=== PATIENT | male | born 1965 | race Caucasian/White ===

== ENCOUNTER 2020-08-24 10:53 | Emergency (ER) | payer SELFPAY ==
[2020-08-24 11:05] VITALS: BMI 28.1
--- NOTE | 2020-08-24 11:07 | W.ED.EAR ---
HPI - Ear Problem General: Chief complaint: Ear Stated complaint: Ear Infection Time Seen by Provider: 08/24/20 10:57 History of Present Illness: HPI Narrative: 55-year-old male patient presents to the emergency department with complaints of left ear pain x1 week. He reports using gvku-zqr-vsorfrc triple antibiotic ointment, ear cleansing medication and warm moist heat without improvement, he reports ear continues to swell. He reports difficulty with hearing and pain to the ear canal. Associated symptoms: Denies fever(s) or headache(s) Review of Systems General: Reports: 10 or more systems reviewed and unremarkable except in HPI and below Const: Denies: fever(s), chills or diaphoresis Eyes: Denies: blurry vision or eye redness ENMT: Denies: throat pain, dental pain, disequilibrium, nasal congestion, nasal obstruction or post nasal drip Card: Denies: chest pain, palpitations or irregular heart rhythm Resp: Denies: dyspnea, productive cough, non-productive cough or wheezing GI: Denies: abdominal pain, nausea or vomiting : Denies: dysuria Musc: Denies: back pain Skin/Breast: Denies: rash or pruritus Neuro: Denies: headache(s), weakness in extremities or behavioral changes Bhupinder/Lymph: Denies: easy bruising Physical Exam Const: COMMON NORMALS: no acute distress, patient oriented x3, healthy appearing and alert GENERAL APPEARANCE: cooperative, comfortable and well hydrated HENMT: COMMON NORMALS: normocephalic, EAC's normal (Right), Normal external nose present, Normal nasal mucous membranes and turbinates present and moist oral mucous membranes HEAD & SCALP: normocephalic FACE & SINUS: normal facial exam, sinuses nontender and face symmetric; no sinus tenderness NOSE: Normal external nose present, Normal nares present and Normal nasal mucous membranes and turbinates present EXTERNAL EAR: Yes external ear abnormal Abnormal external ear present: auricular tenderness (Left) EXTERNAL AUDITORY CANAL: EAC's normal (Right) and Abnormal EAC present (With edema and tenderness) EAC laterality: left TYMPANIC MEMBRANE: TM normal on the right and TM abnormal TM laterality: left Details: dull, erythematous and loss of landmarks MOUTH: Normal oral and palatal mucosa present THROAT: posterior oropharynx normal Eye: COMMON NORMALS: Equal, round and reactive pupils present and EOMs intact bilaterally GENERAL EYE: appearance normal, both eyes and all related structures PUPIL: Yes Equal, round and reactive pupils present Neck/C-Spine: COMMON NORMALS: full ROM and no lymphadenopathy GENERAL: Yes normal visual inspection and Yes trachea midline CERVICAL SPINE: Yes cervical ROM normal Lymph: LYMPHATIC: no lymphadenopathy noted Chest: COMMONS NORMALS: normal inspection of the chest Resp: COMMON NORMALS: normal respiratory effort and clear to auscultation bilaterally AUSCULTATION: clear to auscultation bilaterally Cardio: COMMON NORMALS: regular rhythm, S1 normal heart sound present and S2 normal heart sound present RHYTHM: regular rhythm HEART SOUNDS: S1 normal heart sound present and S2 normal heart sound present GI: COMMON NORMALS: Soft to palpation and non-tender INSPECTION: Yes normal to inspection PALPATION: Yes Soft to palpation : COMMON NORMALS: Yes no CVA tenderness BLADDER/KIDNEY EXAM: Yes no CVA tenderness Back/Pelvis: COMMON NORMALS: no CVA tenderness and thoracic and lumbar spine normal to inspection Extremity: COMMON NORMALS: normal to inspection and capillary refill normal Neuro: COMMON NORMALS: patient oriented x3 and no focal motor deficits SENSORIUM/ORIENTATION: Yes alert Psych: COMMON NORMALS: mental status grossly normal, Normal thought process present and cooperative ACTIVITY/MOTOR BEHAVIOR: Yes appropriate eye contact THOUGHT PROCESS: Normal thought process present Skin: COMMON NORMALS: no rashes or lesions noted and turgor normal GENERAL SKIN EXAM: no rashes or lesions noted and turgor normal Course ED course: 55-year-old male patient presents to the emergency department with complaints of left ear pain and swelling. Use of multiple sxwd-eal-hraqyqx agents to help improve pain, has noted an increased swelling, ear canal was not closed upon exam, tympanic membrane on the left was visualized with erythema. Patient was placed on Augmentin due to possibility of otitis media with otitis externa. He declined further medication other than oral antibiotic, has requested to continue use egol-lfh-pykftou ibuprofen, advised to continue with warm moist heat and cool compresses as needed for symptom relief. Discharge Plan Discharge Patient Disposition: Home Clinical Impression: Otitis externa Qualifiers: Otitis externa type: unspecified type Chronicity: acute Laterality: left Qualified Code(s): H60.502 - Unspecified acute noninfective otitis externa, left ear Condition: Stable Prescriptions: New Augmentin 875-125 mg tablet 1 tab PO Q12H Qty: 14 RF: 0 Discharge Orders: Discharge Order (Routine); Ordered 08/24/20 Ordered By: Tammy Blackwood Discharge Diet: Usual diet Discharge Activity: Resume usual activity Patient Instructions: Otitis Externa - Adult, Otitis Media (ED) Activity Restrictions/Additional Instructions: Take Augmentin until gone, even if feeling better, take medication with food as it can cause stomach upset Follow-up with your primary care provider if your pain does not improve in the next 72 hours Continue with warm moist heat and cool compresses as needed for pain Antibiotic therapy will take 24 to 48 hours to improve symptoms, avoid eardrops or Q-tips to the left ear until improved. Continue use of ibuprofen, pfri-ros-jukxnrn, never exceed 4 tablets 3 times daily in a 24-hour period. Coding Level of Care Code ED Data Examination Clerk for Nacho Godinez
[2020-08-24 11:10] VITALS: BP 128/77; PULSE 73; RESP 16; TEMP 36.9; O2SAT 96
[2020-08-24 11:28] VITALS: BP 128/77; PULSE 73; RESP 16; TEMP 36.9; O2SAT 96
== END 2020-08-24 11:21 | disposition home or self-care (01) ==
PROVIDERS: Emergency Provider Nurse Practitioner Family
DX: H60.502 Unspecified acute noninfective otitis externa, left ear (principal)
CPT/HCPCS: 12345; 99281; 99282

== ENCOUNTER → 2021-12-07 09:42 | Outpatient (BNVA) | payer OTHER, SELFPAY | PROVIDERS: Visit Provider Nurse Practitioner Family | DX: Z20.822 Contact with and (suspected) exposure to COVID-19 (principal) | CPT/HCPCS: 87635 ==

== ENCOUNTER 2024-02-27 19:52 | Emergency (ER) | payer SELFPAY ==
[2024-02-27 19:56] VITALS: BP 158/88; PULSE 84; RESP 16; TEMP 36.7; O2SAT 97
--- NOTE | 2024-02-27 20:06 | XRR_ITS ---
PROCEDURE INFORMATION: Exam: XR Chest Exam date and time: 02/27/2024 9:41 PM Age: 58 years old Clinical indication: Shortness of breath; Patient HX: C/O SOB. TECHNIQUE: Imaging protocol: Radiologic exam of the chest. Views: 1 view. COMPARISON: No relevant prior studies available. FINDINGS: Lungs: Unremarkable. No consolidation. Pleural spaces: Unremarkable. No pleural effusion. No pneumothorax. Heart/Mediastinum: Unremarkable. No cardiomegaly. Bones/joints: Unremarkable. XR/XR chest 1V [id number] IMPRESSION: No acute findings.
[2024-02-27 20:52] LABS: Basophils # 0.1 10^3/uL (0.0-0.1); Basophils % 1.1 %; Eosinophils # 0.3 10^3/uL (0.0-0.8); Eosinophils % 4.8 %; Hematocrit 46.3 % (37-53); Lymphocytes # 1.3 10^3/uL (0.8-4.8); Lymphocytes % 21.4 %; Mean Corpuscular HGB Conc 32.8 g/dL (30-55); Mean Corpuscular Hemoglobin 30.9 pg (27-33); Mean Corpuscular Volume 94.1 fl (82-101); Mean Platelet Volume 8.3 fL (7.4-10.4); Monocytes # 0.7 10^3/uL (0.2-0.9); Monocytes % 10.8 %; Neutrophils # 3.68 10^3/uL (1.8-7.7); Neutrophils % 59.3 %; Nucleated Red Blood Cells % 0 %; Platelet Count 271 10^3/cmm (157-399); Red Blood Count 4.92 10^6/uL (3.85-5.65); Red Cell Distribution Width 12.4 % (12.1-15.1); White Blood Count 6.21 10^3/uL (3.29-11.43)
[2024-02-27 21:16] LABS: Alanine Aminotransferase 30 U/L (0-41); Albumin Level 4.2 g/dL (3.5-5.2); Alkaline Phosphatase 101 U/L (40-130); Aspartate Amino Transferase 22 U/L (0-40); Blood Urea Nitrogen 21 mg/dL (6-20); Calcium 9.5 mg/dL (8.5-10.5); Chloride 101 mmol/L (98-107); Creatinine Clr Calc Pharmacy 104.2094; Globulin 2.8 g/dL (1.3-4.6); Glomerular Filtration Rate 99.6 mL/min (90-130); Glucose 93 mg/dL (65-115); Osmolality Calculated 287 mOsm/kg (285-295); Potassium 4.4 mmol/L (3.5-5.1); Sodium 137 mmol/L (136-145); Total Bilirubin 0.3 mg/dL (0.15-1.2)
[2024-02-27 21:18] LABS: Troponin(5th) Baseline 7 ng/L (0-15)
[2024-02-27 21:28] LABS: Influenza A by IFA negative (Negative); Influenza B by IFA negative (Negative)
[2024-02-27 21:29] LABS: SARS Covid-2 Antigen negative (Negative)
[2024-02-27 21:34] VITALS: BP 150/90; PULSE 76; RESP 13; O2SAT 96
[2024-02-27 21:36] LABS: Anion Gap 14.4 (5-19); Carbon Dioxide 26 mmol/L (22-29)
[2024-02-27 21:46] LABS: Bilirubin Urine Neg (Negative); Blood Urine Neg (Negative); Glucose Urine UA Norm (Normal); Ketones Urine Negative (Negative); Leukocyte Esterase Urine Negative (Negative); Nitrate Urine Negative (Negative); Protein Urine Neg (Negative); Urine Appearance Clear (CLEAR); Urine Color Yellow (Yellow); Urobilinogen Urine Neg (Negative); pH Urine 7 (5-7)
[2024-02-27 21:47] LABS: Amorphous Sediment Urine 2+ /hpf; Bacteria Urine 2+ /hpf; RBC Urine 0-4 /hpf (0-2); Squamous Epithelial Cell Urine 0-4 /hpf (0-5); WBC Urine 0-4 /hpf (0-5)
[2024-02-27 22:05] VITALS: BP 133/73; PULSE 74; RESP 19; O2SAT 93
--- NOTE | 2024-02-27 22:07 | ECG_ITS ---
[facility] Test Date: 2024-02-27 Pat Name: Jimmie Pavon Department: Room: Gender: Male [employer]: : 1965 Requested By: Maria Elena Aevry Order Number: [id number] Raúl MD: Lev Lowry M.D. Measurements Intervals [place] Rate: 73 P: 34 MT: 132 QRS: 57 QRSD: 80 T: 45 QT: 371 QTc: 410 Interpretive Statements SINUS RHYTHM No previous ECG available for comparison Electronically Signed On 02-27-2024 23:13:33 CDT by Lev Lowry M.D. [id number]
[2024-02-27] MEDS: meclizine 25 mg tablet 50 MG PO (22:09)
--- NOTE | 2024-02-27 22:19 | W.ED.DIZZY ---
HPI - Dizziness General: Chief Complaint: Dizziness Stated Complaint: BP Time Seen by Provider: 02/27/24 21:24 History of Present Illness: HPI Narrative: Patient presents to the ER with complaints of off-and-on dizziness for the last month. Patient also complaining of intermittent epigastric pain with an unknown cause. Patient states that he does have a chronic cough that is worse in the morning. Patient works in the [employer] for a long time and has inhaled a lot of chemicals. Review of Systems General: Reports: 10 or more systems reviewed and unremarkable except in HPI and below PFSH ED PFSH: Social History Smoking and tobacco/nicotine status: current every day tobacco/nicotine user smokeless tobacco Smokeless tobacco user: chewing tobacco Physical Exam HENMT: COMMON NORMALS: normocephalic, atraumatic, hearing grossly normal bilaterally, external ears normal, Normal external nose present, moist oral mucous membranes and oropharynx normal HEAD & SCALP: normocephalic and atraumatic NOSE: Normal external nose present EXTERNAL EAR: Yes external ears normal Eye: COMMON NORMALS: Equal, round and reactive pupils present, EOMs intact bilaterally, conjunctivae normal and no scleral icterus CONJUNCTIVA: Yes conjunctivae normal PUPIL: Yes Equal, round and reactive pupils present Neck/C-Spine: COMMON NORMALS: full ROM, no lymphadenopathy, supple, no meningeal signs, no JVD and Thyroid normal THYROID: Thyroid normal Chest: COMMONS NORMALS: normal inspection of the chest and normal palpation of entire chest wall Resp: COMMON NORMALS: normal respiratory effort, No retractions, No use of accessory muscles and clear to auscultation bilaterally AUSCULTATION: clear to auscultation bilaterally Cardio: COMMON NORMALS: no JVD, regular rate, regular rhythm, S1 normal heart sound present, S2 normal heart sound present, No gallops present (Cardio), No clicks present (Cardio), No murmurs present (Cardio) and No rub (Cardio) RATE: regular rate RHYTHM: regular rhythm HEART SOUNDS: S1 normal heart sound present and S2 normal heart sound present GI: COMMON NORMALS: Normal to inspection, nondistended, normoactive bowel sounds present, Soft to palpation, non-tender, No hepatosplenomegaly present and no masses PALPATION: Yes Soft to palpation and Yes No hepatosplenomegaly present Neuro: MENINGEAL SIGNS: Yes no meningeal signs Course Vital Signs: Vital signs: Vital Signs Temperature 98.1 F 02/27/24 19:56 Pulse Rate 74 02/27/24 23:21 Respiratory Rate 14 02/27/24 23:21 Blood Pressure 114/77 02/27/24 23:21 Pulse Oximetry 94 02/27/24 23:21 Oxygen Delivery Me thod Room Air 02/27/24 22:05 MDM - Dizziness Medical Decision Making Lab work was obtained as well as EKG and chest x-ray all of which was essentially benign. Patient was given 25 mg meclizine which did not appear to help the dizziness significantly. Patient be discharged to follow-up with his PCP for further evaluation testing. Differential Diagnosis Likely benign paroxysmal positional vertigo; Unlikely adverse reaction to drug, orthostatic hypotension, vertebral basilar insufficiency, cerebrovascular accident, acute vestibular neuronitis or transient cerebral ischemia Lab Data 02/27/24 20:33 02/27/24 20:33 Radiology Impressions Chest X-Ray 02/27/24 20:06 IMPRESSION: No acute findings. Laboratory Results WBC 6.21 10^3/uL (3.29-11.43) 02/27/24 20:33 RBC 4.92 10^6/uL (3.85-5.65) 02/27/24 20:33 Hgb 15.20 g/dL (11.27-16.99) 02/27/24 20:33 Hct 46.3 % (37-53) 02/27/24 20:33 MCV 94.1 fl (82-101) 02/27/24 20:33 MCH 30.9 pg (27-33) 02/27/24 20:33 MCHC 32.8 g/dL (30-55) 02/27/24 20:33 RDW 12.4 % (12.1-15.1) 02/27/24 20:33 Plt Count 271 10^3/cmm (157-399) 02/27/24 20:33 MPV 8.3 fL (7.4-10.4) 02/27/24 20:33 Neut % (Auto) 59.3 % 02/27/24 20:33 Lymph % (Auto) 21.4 % 02/27/24 20:33 [place] % (Auto) 10.8 % 02/27/24 20:33 Eos % (Auto) 4.8 % 02/27/24 20:33 Baso % (Auto) 1.1 % 02/27/24 20: Neut # (Auto) 3.68 10^3/uL (1.8-7.7) 02/27/24 20: Lymph # (Auto) 1.3 10^3/uL (0.8-4.8) 02/27/24 20: [place] # (Auto) 0.7 10^3/uL (0.2-0.9) 02/27/24 20: Eos # (Auto) 0.3 10^3/uL (0.0-0.8) 02/27/24 20: Baso # (Auto) 0.1 10^3/uL (0.0-0.1) 02/27/24 20: Nucleated RBC % (auto) 0 % 02/27/24 20: Nucleated RBCs # 0.0 /100WBC 02/27/24 20:33 Sodium 137 mmol/L (136-145) 02/27/24 20: Potassium 4.4 mmol/L (3.5-5.1) 02/27/24 20: Chloride 101 mmol/L (98-107) 02/27/24 20: Carbon Dioxide 26 mmol/L (22-29) 02/27/24 20:33 Anion Gap 14.4 (5-19) 02/27/24 20:33 BUN 21 mg/dL (6-20) H 02/27/24 20:33 Creatinine 0.8 mg/dL (0.7-1.2) 02/27/24 20:33 GFR Calculation 99.6 mL/min (90-130) 02/27/24 20:33 Glucose 93 mg/dL (65-115) 02/27/24 20:33 Calculated Osmolality 287 mOsm/kg (285-295) 02/27/24 20:33 Calcium 9.5 mg/dL (8.5-10.5) 02/27/24 20:33 Total Bilirubin 0.3 mg/dL (0.15-1.2) 02/27/24 20:33 AST 22 U/L (0-40) 02/27/24 20: ALT 30 U/L (0-41) 02/27/24 20:33 Alkaline Phosphatase 101 U/L (40-130) 02/27/24 20:33 Troponin T Baseline 7 ng/L (0-15) 02/27/24 20:33 Troponin T 120 Minute 6.93 ng/L (0-15) 02/27/24 22:10 Delta Troponin T -0.07 ABS# (0-10) L 02/27/24 22:10 Total Protein 7.0 g/dL (6.6-8.7) 02/27/24 20:33 Albumin 4.2 g/dL (3.5-5.2) 02/27/24 20:33 Globulin 2.8 g/dL (1.3-4.6) 02/27/24 20:33 Urine Color Yellow (Yellow) 02/27/24 21:14 Urine Appearance Clear (CLEAR) 02/27/24 21:14 Urine pH 7 (5-7) 02/27/24 21:14 Ur Specific [place] 1.010 (1.005-1.030) 02/27/24 21:14 Urine Protein Neg (Negative) 02/27/24 21:14 Urine Glucose (UA) Norm (Normal) 02/27/24 21:14 Urine Ketones Negative (Negative) 02/27/24 21:14 Urine Blood Neg (Negative) 02/27/24 21:14 Urine Nitrate Negative (Negative) 02/27/24 21:14 Urine Bilirubin Neg (Negative) 02/27/24 21:14 Urine Urobilinogen Neg mg/dL (Negative) 02/27/24 21:14 Ur Leukocyte Esterase Negative (Negative) 02/27/24 21:14 Urine RBC 0-4 /hpf (0-2) H 02/27/24 21:14 Urine WBC 0-4 /hpf (0-5) H 02/27/24 21:14 Ur Squamous Epith Cells 0-4 /hpf (0-5) H 02/27/24 21:14 Amorphous Sediment 2+ /hpf 02/27/24 21:14 Urine Bacteria 2+ /hpf (NONE) H 02/27/24 21:14 Influenza Type A Ag negative (Negative) 02/27/24 21:08 Influenza Type B Ag negative (Negative) 02/27/24 21:08 SARS-CoV-2 Ag (Rapid) negative (Negative) 02/27/24 21:08 All radiology interpretation(s) finalized by discharge Discharge Plan Discharge Patient Disposition: Home Clinical Impression: Vertigo, Acute epigastric pain Condition: Stable Prescriptions: New Pepcid 40 mg tablet 40 mg PO BID Qty: 30 0RF meclizine 25 mg tablet 25 mg PO TID PRN (Reason: dizziness) Qty: 30 0RF Discharge Orders: Discharge ED (Routine); Ordered 02/27/24 Ordered By: Kash Qiuros Patient Instructions: Vertigo (DC), Abdominal Pain (ED) Activity Restrictions/Additional Instructions: Take all medicine as directed for your epigastric pain and vertigo. Please follow-up with your family practice physician for further evaluation testing as needed. Coding Level of Care Code ED Tie Tamper for Nacho Godinez
[2024-02-27 22:38] LABS: Troponin 5 2HR 6.93 ng/L (0-15)
[2024-02-27 22:45] LABS: Troponin 5 2HR Delta -0.07 ABS# (0-10)
[2024-02-27 23:21] VITALS: BP 114/77; PULSE 74; RESP 14; O2SAT 94
== END 2024-02-27 23:23 | disposition home or self-care (01) ==
PROVIDERS: Emergency Medicine; Emergency Provider Emergency Medicine
DX: R42 Dizziness and giddiness (principal); R10.13 Epigastric pain; Z11.52 Encounter for screening for COVID-19; F17.220 Nicotine dependence, chewing tobacco, uncomplicated
CPT/HCPCS: 36415; 71045; 80053; 81001; 84484; 85025; 87426; 87804; 93005; 99285; J8597

== ENCOUNTER 2024-05-03 04:30 | Emergency (ER) | payer SELFPAY ==
[2024-05-03 04:36] VITALS: BP 183/117; PULSE 79; RESP 14; TEMP 36.5; O2SAT 100; BMI 28.1
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
[2024-05-03 06:39] VITALS: BP 139/83; PULSE 65; RESP 16; TEMP 36.5; O2SAT 94
[2024-05-03 06:41] VITALS: BP 139/83; PULSE 65; RESP 16; O2SAT 94
[2024-05-03 07:30] VITALS: BP 123/93; PULSE 66; O2SAT 93
== END 2024-05-03 08:11 | disposition home or self-care (01) ==
PROVIDERS: Emergency Provider Emergency Medicine
DX: S52.131A Displaced fracture of neck of right radius, initial encounter for closed fracture (principal); S40.011A Contusion of right shoulder, initial encounter; F17.220 Nicotine dependence, chewing tobacco, uncomplicated; V58.6XXA Passenger in pick-up truck or van injured in noncollision transport accident in traffic accident, initial encounter
CPT/HCPCS: 70450; 72125; 72170; 73030; 73060; 73090; 99284

== ENCOUNTER 2025-10-25 10:54 | Emergency (ER) | payer SELFPAY ==
[2025-10-25 10:59] VITALS: BP 151/90; PULSE 59; RESP 18; TEMP 36.4; O2SAT 98
--- NOTE | 2025-10-25 11:24 | W.ED.NECK ---
HPI - Neck Pain/Injury General: Chief Complaint: Neck Pain/Injury Stated Complaint: head/neck pain Time Seen by Provider: 10/25/25 11:13 History of Present Illness: 60-year-old male presents to the emergency room with complaints of neck pain. He previously had neck surgery 8 or 9 years ago he was doing some lifting some firewood had worsening neck discomfort. He chronically has pain radiating to his hands and has numbness at his fingertips which is not new. No acute traumatic event recently. Patient has CT results from a recent hospitalization that included a CT of the soft tissue of the neck where they commented on his previous neck surgery but nothing about his in detail. No weakness of the legs or difficulty with ambulation or balance. Related Data Previous Rx's ?Medication ?Instructions ?Recorded famotidine 40 mg tablet (Pepcid) 40 mg PO BID #30 tabs 02/27/24 meclizine 25 mg tablet 25 mg PO TID PRN dizziness #30 tabs 02/27/24 tramadol 100 mg tablet 100 mg PO Q8H PRN pain #10 tabs 05/03/24 diclofenac sodium 75 mg 75 mg PO Q12H PRN pain #20 tabs 10/25/25 tablet,delayed release prednisone 20 mg tablet 20 mg PO TID #15 tabs 10/25/25 pregabalin 75 mg capsule (Lyrica) 75 mg PO BID #60 caps 10/25/25 tizanidine 4 mg tablet 4 mg PO Q6H PRN muscle spasticity 10/25/25 #20 tabs Allergies Allergy/AdvReac Type Severity Reaction Status Date / Time acetaminophen (From Vicodin) Allergy ALGY-Difficulty Verified 12/07/21 08:42 Breathing hydrocodone (From Vicodin) Allergy ALGY-Difficulty Verified 12/07/21 08:42 Breathing Review of Systems Const: Denies: fever(s) or chills Card: Denies: chest pain Resp: Denies: dyspnea GI: Denies: abdominal pain : Denies: dysuria, urinary frequency or urinary urgency Musc: Reports: neck pain; Denies: back pain Skin/Breast: Denies: rash PFSH ED PFSH: Social History Smoking and tobacco/nicotine status: current every day tobacco/nicotine user smokeless tobacco Smokeless tobacco user: chewing tobacco Physical Exam Const: GENERAL APPEARANCE: cooperative ORIENTATION/CONSCIOUSNESS: Yes awake, Yes oriented to person, Yes oriented to place and Yes oriented to time HENMT: COMMON NORMALS: normocephalic, atraumatic and hearing grossly normal bilaterally HEAD & SCALP: normocephalic and atraumatic Neck/C-Spine: OTHER: Significant decreased range of motion and flexion and rotation of the cervical spine Resp: COMMON NORMALS: normal respiratory effort, No retractions, No use of accessory muscles and clear to auscultation bilaterally AUSCULTATION: clear to auscultation bilaterally Cardio: COMMON NORMALS: regular rate, regular rhythm and No murmurs present (Cardio) RATE: regular rate RHYTHM: regular rhythm GI: COMMON NORMALS: Soft to palpation and No hepatosplenomegaly present AUSCULTATION: Yes normoactive bowel sounds PALPATION: Yes Soft to palpation, No Tenderness to palpation present (GI), No Guarding due to palpation present (GI) and Yes No hepatosplenomegaly present Extremity: COMMON NORMALS: normal to inspection, capillary refill normal, no clubbing, cyanosis or edema, no calf tenderness and no pedal edema OTHER: Upper extremities neurovascularly intact to sharp touch patient has good sensation Neuro: SENSORIUM/ORIENTATION: Yes oriented to person, Yes oriented to place and Yes oriented to time Skin: COMMON NORMALS: no rashes or lesions noted GENERAL SKIN EXAM: no rashes or lesions noted Course Vital Signs: Vital signs: Vital Signs Temperature 97.5 F L 10/25/25 10:59 Pulse Rate 59 L 10/25/25 10:59 Respiratory Rate 17 10/25/25 12:42 Blood Pressure 139/95 10/25/25 11:37 Pulse Oximetry 97 10/25/25 12:42 Oxygen Delivery Me thod Room Air 10/25/25 10:59 MDM - Neck Pain/Injury Medical Decision Making Medical decision making Social determinants: None I reviewed the patient's medical record. I reviewed the patient's current home meds. Alternate historians: None Differential diagnosis: Cervical disc disease cervical radiculopathy, Lab Review: None Imaging: None Assessment of risk Level of risk: Low Hospitalization considerations: No indication for hospitalization Reexamination: No radicular symptoms at this time ambulation without difficulty strength in upper extremities and sensation is normal Assessment and plan: Chronic neck pain. No recent trauma or injury cervical surgery was many years ago. Will discharge him home on pregabalin prednisone taper diclofenac and tizanidine recommend he follow-up with his primary care doctor Or orthopedic or spine surgery as soon as he is able or if symptoms worsen or change can return to the emergency room. No radiology studies performed this visit Discharge Plan Discharge Patient Disposition: Home Clinical Impression: Cervical spondylosis Condition: Stable Prescriptions: New tizanidine 4 mg tablet 4 mg PO Q6H PRN (Reason: muscle spasticity) Qty: 20 0RF Rx Instructions: do not exceed 3 doses per 24 hrs prednisone 20 mg tablet 20 mg PO TID Qty: 15 0RF Rx Instructions: 1 p.o. 3 times daily x3 days, 1 p.o. twice daily x2 days, 1 p.o. daily x2 days diclofenac sodium 75 mg tablet,delayed release (DR/EC) 75 mg PO Q12H PRN (Reason: pain) Qty: 20 0RF pregabalin [Lyrica] 75 mg capsule 75 mg PO BID Qty: 60 0RF No Action Pepcid 40 mg tablet 40 mg PO BID Qty: 30 0RF meclizine 25 mg tablet 25 mg PO TID PRN (Reason: dizziness) Qty: 30 0RF tramadol 100 mg tablet 100 mg PO Q8H PRN (Reason: pain) Qty: 10 0RF Discharge Orders: Discharge ED (Routine); Ordered 10/25/25 Ordered By: Scott Jin Discharge Diet: Usual diet Discharge Activity: Increase activity as tolerated Patient Instructions: Opioid Safety, Pain Management, Patient Portal & Daniel Instructions Activity Restrictions/Additional Instructions: Thank you for choosing [facility] for your healthcare needs today. It is very important that you follow up as instructed or that you return to the Emergency Department should you have concerns or if your condition changes or worsens in any way. Emergency department visits are focused on emergent conditions, in some cases you may require further evaluation on an outpatient basis. You are seen emergency room for complaint of neck pain. You are given medication to treat the immediate discomfort. Given your history it is you should have a follow-up with orthopedic spine surgery or neurosurgery wherever you had your previous procedure done if possible. Today you were started on a steroid taper given pain medications and muscle relaxers as well as medicines for chronic long-term pain. Follow-up with your doctor as soon as you are able. (Please note that included in your discharge packet is information concerning opioid safety and pain management. This information is given to all patients were discharged from the ER regardless of their discharge diagnosis or the medicines they usually take or are prescribed.) Print Language: Wolof Coding Level of Care Code ED Bank Operations Officer for Nacho Godinez
[2025-10-25 11:37] VITALS: BP 139/95; O2SAT 97
[2025-10-25] MEDS: orphenadrine 30 mg/mL Inj 2 mL 60 MG IM (11:51)
[2025-10-25] MEDS: methylPREDNISolone sod succ 125 mg/2 mL INJ IVP (11:52)
[2025-10-25 12:42] VITALS: RESP 17; O2SAT 97
[2025-10-25] MEDS: morphine 4 mg/mL SDV 1 mL IVP (12:42)
== END 2025-10-25 13:13 | disposition home or self-care (01) ==
PROVIDERS: Emergency Provider Family Medicine
DX: M47.812 Spondylosis without myelopathy or radiculopathy, cervical region (principal); F17.220 Nicotine dependence, chewing tobacco, uncomplicated
CPT/HCPCS: 96374; 96375; 99284; J1885; J2270; J2360; J2919